=== PATIENT | male | born 1965 ===

== ENCOUNTER → 2024-10-29 08:00 | Outpatient (CLI) | payer OTHER ==
[~2024-10-29] VITALS: Ht 188 cm; Wt 117.9 kg
[~2024-10-29 08:00] MED LIST: TOPROL XL25 M1 PO
[2024-10-29 10:08] LABS: HEMATOCRIT 39.7 % (39.0-48.0); HEMOGLOBIN 13.3 g/dL (13-16.00); MEAN CORPUSCULAR HEMOGLOBIN 34.8 pg (27.00-32.0); MEAN CORPUSCULAR HGB CONC 33.5 g/dl (32.0-36.0); RED BLOOD COUNT 3.82 M/uL (4.00-6.00); RED CELL DISTRIBUTION WIDTH 14.7 % (11.5-14.5)
[2024-10-29 10:11] LABS: PLATELET COUNT 115 K/uL (150-450)
[2024-10-29 10:33] LABS: INR 1.03; PARTIAL THROMBOPLASTIN TIME 27.1 SECONDS (22.0-34.0); PROTHROMBIN TIME 11.2 SECONDS (9.0-11.5)
[2024-10-29 11:02] LABS: PH,URINE 5.5 (5.0-8.0); URINE APPEARANCE Clear; URINE BILIRRUBIN Negative (NEGATIVE); URINE BLOOD Negative; URINE COLOR Yellow; URINE GLUCOSE Negative (NEGATIVE); URINE KETONE Negative (NEGATIVE); URINE LEUKOCYTE Negative; URINE NITRATE Negative; URINE PROTEIN Negative (NEGATIVE)
[2024-10-29 11:07] LABS: URINE BACTERIA 6.1 uL (0.0-1933); URINE EPITHELIAL CELLS 8.3 uL (0.0-38.8); URINE RBC 5.7 uL (0.0-20.8); URINE WBC 5.3 uL (0.0-23.2)
[2024-10-29 11:07] LABS: CALCIUM 9.2 mg/dL (8.5-10.1); CREATININE SERUM 1.13 mg/dL (0.70-1.30); GFR 66.65; POTASSIUM 4.92 mEq/L (3.5-5.1)
[2024-10-29 11:17] LABS: URINE CAST 0.88 uL (0.0-1.40)
[2024-10-29 13:36] LABS: RH POSITIVE
[2024-11-01 09:16] VITALS: BP 112/72
== END | disposition home or self-care (01) ==
LOC: RAD 08:00 → SURH 11-07 07:00 → EDSTATUS 11-07 08:30 → SURH 11-07 08:30
PROVIDERS: ATTEND Urology
DX: C61 Malignant neoplasm of prostate (principal)